=== PATIENT | female | born 1990 ===

== ENCOUNTER 2016-08-30 13:23 | Emergency (ER) | payer OTHER ==
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
== END 2016-08-30 14:27 | disposition home or self-care (01) ==
LOC: ER 13:23
DX: M54.2 Cervicalgia (principal); V49.50XA Passenger injured in collision with unspecified motor vehicles in traffic accident, initial encounter

== ENCOUNTER 2016-09-12 01:58 | Emergency (ER) | payer MEDICAID | END 2016-09-12 03:25 | disposition home or self-care (01) | DX: F45.8 Other somatoform disorders (principal) ==